=== PATIENT | male | born 1995 | race African-American/Black ===

== ENCOUNTER 2017-02-21 11:28 | Emergency (ER) | payer OTHER ==
[2017-02-21 11:43] VITALS: RESP 16
--- NOTE | 2017-02-21 12:23 | ED ---
Upper Extremity HPI - General Chief Complaint: Extremity Injury, Upper Stated Complaint: left hand injury Time Seen by Provider: 02/21/17 12:08 Source: patient, RN notes reviewed Mode of arrival: ambulatory Limitations: no limitations - History of Present Illness Initial Comments: 21-year-old male presents emergency Department chief complaint of left wrist pain. Patient states he follows pain since she's had pain to the left wrist. Patient states it hurts to move the hand and wrist. Patient states he did notice a small bulge to the forearm. Patient states there is been no fever chills with this. Patient states there is no head injury and no other part of his body is hurting. She was concerns without that he should be evaluated. Patient denies any recent fever, chills, shortness of breath, chest pain, back pain, abdominal pain, nausea vomiting, numbness or tingling, dysuria or hematuria, constipation or diarrhea, headaches or visual changes, or any other current symptoms. - Related Data Home Medications Medication Instructions Recorded Confirmed No Known Home Medications [No 02/21/17 02/21/17 Known Home Medications] Allergies Allergy/AdvReac Type Severity Reaction Status Date / Time milk Allergy Rash/Hives Verified 02/21/17 12:00 Review of Systems ROS Statement: Those systems with pertinent positive or pertinent negative responses have been documented in the HPI. ROS Other: All systems not noted in ROS Statement are negative. Past Medical History Past Medical History: No Reported History Additional Past Medical History / Comment(s): [facility] History of Any Multi-Drug Resistant Organisms: None Reported Past Surgical History: No Surgical Hx Reported Additional Past Surgical History / Comment(s): back surg from [facility] Past Psychological History: No Psychological Hx Reported Smoking Status: Current every day smoker Past Alcohol Use History: None Reported Past Drug Use History: None Reported General Exam - General Exam Comments Initial Comments: General: The patient is awake and alert, in no distress, and does not appear acutely ill. Neck: The neck is supple, there is no tenderness. Cardiovascular: There is a regular rate and rhythm. No murmur, rub or gallop is appreciated. Respiratory: Lungs are clear to auscultation, respirations are non-labored, breath sounds are equal. No wheezes, stridor, rales, or rhonchi. Musculoskeletal: Sensation intact with 2+ pulses throughout the left upper x- ray. Range of motion of left elbow. Patient does appear to have small contusion to the lateral aspect of the left forearm. Patient has range of motion of the wrist with pain. Find motion of the left hand. 5 out of 5 muscle strength testing throughout. Neurological: CN II-XII intact, There are no obvious motor or sensory deficits. Coordination appears grossly intact. Speech is normal. Skin: Skin is warm and dry and no rashes or lesions are noted. Psychiatric: Normal mood and affect. Limitations: no limitations Course Vital Signs 02/21/17 11:40 Temperature 98.3 F Pulse Rate 85 Respiratory 16 Rate Blood Pressure 130/78 O2 Sat by Pulse 99 Oximetry Medical Decision Making - Medical Decision Making 21-year-old male presents to the emergency department with a chief complaint of left forearm. At this time the patient x-rays are reviewed and negative. This time he patient has a left forearm contusion. We discussed ice Motrin Tylenol for pain control. We discussed return parameters and follow-up all patient's questions. He stated he understood these. Plan. He will be discharged. - Radiology Data Radiology results: report reviewed, image reviewed Disposition Clinical Impression: Contusion of left forearm Disposition: HOME SELF-CARE Condition: Stable Instructions: Contusion in Children (ED) Additional Instructions: Please use medication as discussed. Please follow up with family doctor if symptoms have not improved over the next two days. Please return to the emergency room if your symptoms increase or worsen or for any other concerns. Referrals: Prachi Majano MD [STAFF PHYSICIAN] - 1-2 days Time of Disposition: 13:00
--- NOTE | 2017-02-21 12:54 | XR ---
EXAMINATION TYPE: XR forearm LT DATE OF EXAM: 02/21/2017 COMPARISON: NONE HISTORY: Pain TECHNIQUE: 2 view left forearm FINDINGS: No acute fractures evident. Joint spaces are preserved. Soft tissues are normal. IMPRESSION: 1. Normal 2 view left forearm
--- NOTE | 2017-02-21 12:56 | XR ---
EXAMINATION TYPE: XR wrist complete LT DATE OF EXAM: 02/21/2017 COMPARISON: NONE HISTORY: Pain TECHNIQUE: 4 view left wrist FINDINGS: No acute fractures are evident. Soft tissues are normal. There is pain at the anatomic snuff box, nuclear medicine bone scan be recommended for additional cesar luation. Plain film follow-up can be performed 7-10 days from acute trauma for continued pain IMPRESSION: 1. Normal left wrist
[2017-02-21] MEDS ORDERED: IBUPROFEN 600 MG TAB PO STA (13:00)
[2017-02-21 13:25] VITALS: BP 153/96; PULSE 60; TEMP 97.7
== END 2017-02-21 13:24 | disposition home or self-care (01) ==
LOC: EC 11:28
DX: S50.12XA Contusion of left forearm, initial encounter (principal); M25.532 Pain in left wrist; F17.200 Nicotine dependence, unspecified, uncomplicated; Z91.011 Allergy to milk products; X58.XXXA Exposure to other specified factors, initial encounter
CPT/HCPCS: 99283